=== PATIENT | male | born 1995 | race African-American/Black ===

== ENCOUNTER 2016-10-27 16:08 | Emergency (ER) | payer OTHER ==
[~2016-10-27 16:08] MED LIST: ADVAIR INH; ALBUTEROL17 GM INH; AMOXICILLIN875 MG PO; AUGMENTIN875 MG PO; BACITRACIN-POLY15 GM TOP; CIPRO PO; DELTASONE20 MG PO; DOXYCYCLINE PO; FLEXERIL10 MG PO; LEVAQUIN PO; MEDROL4 MG/DOSE- PO; MOTRIN600 M2 PO; NO MEDICATIONS; PREDNISONE PO; PROMETHAZINE D118 ML PO; PYRIDIUM PO; ROBITUSSIN ALL118 ML PO; SINGULAIR PO; SUDAFED PO; VENTOLIN5 MG/ML INH; VOLTAREN75 MG PO; ZITHROMAX PO
[2016-10-27 17:02] LABS: URINE SOURCE CLEAN CATCH
[2016-10-27 17:03] LABS: BASOPHIL# 0.1 X10e3 (0-0.3); BASOPHIL% 1.3 % (0-2.5); EOSINOPHIL# 0.1 X10e3 (0-0.7); EOSINOPHIL% 1.9 % (0.0-7.0); HEMATOCRIT 50.8 % (38.0-50.0); HEMOGLOBIN 17.1 gm/dL (13.0-16.0); LYMPHOCYTE# 2.3 X10e3 (1.0-3.5); LYMPHOCYTE% 39.1 % (17.0-45.0); MEAN CELL VOLUME 92.9 FL (83-96); MEAN CORPUSCULAR HEMOGLOBIN 31.2 PG (28-34); MEAN CORPUSCULAR HGB CONC 33.6 g/dL (30-36); MEAN PLATELET VOLUME 9.2 FL (6.5-11.5); MONOCYTE# 0.4 X10e3 (0-1.0); MONOCYTE% 6.5 % (3.0-12.0); NEUTROPHIL# 3.1 X10e3 (1.5-7.1); NEUTROPHIL% 51.2 % (40-75); PLATELET COUNT 271 X10e3 (140-420); RED BLOOD COUNT 5.46 X10e (3.90-5.60); RED CELL DISTRIBUTION WIDTH 13.6 % (11.0-15.5)
[2016-10-27 17:05] LABS: URINE APPEARANCE CLEAR; URINE BILIRUBIN NEG (NEG); URINE BLOOD NEG (NEG); URINE COLOR YELLOW; URINE GLUCOSE NEG (NORM); URINE KETONE NEG (NEG); URINE LEUKOCYTE ESTERASE NEG (NEG); URINE NITRATE NEG (NEG); URINE PH 7.5 (5-8); URINE PROTEIN NEG (NEG); URINE SPECIFIC GRAVITY 1.015 (1.003-1.035); URINE UROBILINOGEN 0.2 MG/DL (NORM)
[2016-10-27 17:06] LABS: DIFF IND NO; MICRO INDICATED? NO
[2016-10-27 17:14] LABS: ALBUMIN SERUM 4.4 g/dL (3.5-5.0); ALKALINE PHOSPHATASE 98 U/L (32-92); ALT (SGPT) 63 U/L (10-40); AMPHETAMINE NEG (NEG); AMYLASE 23 U/L (0-46); AST (SGOT) 34 U/L (10-42); BARBITURATES NEG (NEG); BENZODIAZEPINES POS (NEG); BILIRUBIN,TOTAL 0.4 mg/dL (0.2-2.0); BLOOD UREA NITROGEN 16 mg/dL (9-23); BUN/CREATININE RATIO 14.54; CALCIUM SERUM 9.7 mg/dL (8.4-10.2); CARBON DIOXIDE 27 mmol/L (22-31); CHLORIDE 103 mmol/L (100-111); COCAINE NEG (NEG); CREATININE SERUM 1.1 mg/dL (0.6-1.4); GLOM FILT RATE Estimated 109.9 mL/min (>60); GLUCOSE FASTING 112 mg/dL (70-110); LIPASE 25 U/L (22-51); MARIJUANA POS (NEG); OPIATES NEG (NEG); POTASSIUM 3.9 mmol/L (3.5-5.1); PROTEIN TOTAL SERUM 7.7 g/dL (6.0-8.3); SODIUM 138 mmol/L (135-145); TRICYCLIC ANTIDEPRESSANTS NEG (NEG); U METHADONE NEG (NEG)
[2016-10-27 17:30] LABS: ALCOHOL BLOOD <5 mg/dL (0); BILIRUBIN, DIRECT <0.1 mg/dL (0.0-0.2); BILIRUBIN,INDIRECT 0.3 mg/dL (0.0-0.9)
== END 2016-10-27 18:25 | disposition home or self-care (01) ==
LOC: SED 16:08
PROVIDERS: Student in an Organized Health Care Education/Training Program
DX: E86.0 Dehydration (principal); J45.909 Unspecified asthma, uncomplicated; F17.200 Nicotine dependence, unspecified, uncomplicated
CPT/HCPCS: 80048; 80076; 80307; 81003; 82150; 82550; 83690; 85025; 96361; 96374; 96375; 99284; C9113; G0480; J2405

== ENCOUNTER 2017-02-08 02:24 | Emergency (ER) | payer OTHER ==
[~2017-02-08] VITALS: Ht 177.8 cm; Wt 104.3 kg
[2017-02-08 03:04] LABS: URINE SOURCE CLEAN CATCH
[2017-02-08 03:05] LABS: MICRO INDICATED? YES; URINE APPEARANCE CLEAR; URINE BILIRUBIN NEG (NEG); URINE BLOOD TRACE-INTACT (NEG); URINE COLOR YELLOW; URINE GLUCOSE NEG (NORM); URINE KETONE NEG (NEG); URINE LEUKOCYTE ESTERASE NEG (NEG); URINE NITRATE NEG (NEG); URINE PH 6.5 (5-8); URINE PROTEIN NEG (NEG); URINE UROBILINOGEN 0.2 MG/DL (NORM)
[2017-02-08 03:11] LABS: CULTURE INDICATED? NO; URINE BACTERIA NEG (NEG); URINE RBC 0-2 /[HPF] (0-2); URINE SQUAMOUS EPITHELIAL CELL FEW /[HPF]; URINE WBC NEG /[HPF] (0-5)
[2017-02-10 04:35] LABS: CHLAMYDIA TRACH Not Detected (Not Detected); N GONOR Not Detected (Not Detected)
== END 2017-02-08 03:23 | disposition home or self-care (01) ==
LOC: SED 02:24
PROVIDERS: Student in an Organized Health Care Education/Training Program
DX: K29.20 Alcoholic gastritis without bleeding (principal); J45.909 Unspecified asthma, uncomplicated; F17.200 Nicotine dependence, unspecified, uncomplicated
CPT/HCPCS: 81003; 87491; 87591; 99284